=== PATIENT | male | born 1975 ===

== ENCOUNTER 2022-08-02 01:32 | Emergency (ER) | payer BC ==
--- OUTSIDE RECORDS SUMMARY | 2022-08-02 01:35 | XMS REPORT | Continuity of Care Document ---
:1975 Author Organization [facility] t Address [address] [place] [address] Care Team Providers Name Role Phone Lillie Reed Attending Clinician Unavailable Payers Payer Name Policy Type Policy Number Effective Date Expiration Date S [facility] 6 [id number] [facility] Center Problems Condition Condition Condition Status Onset Resolution Last Treating Co mments Source Name Details Category Date Date Treatment Clinician Date [id number] Low Problem Active Common [facility] in male [facility] Essential Benign Problem Active Common hypertensi essential Spi rit on HTN [facility] [id number] Alcoholism Problem Active Comm on [place] [facility] Allergies, Adverse Reactions, Alerts Allergy Allergy Status Severity Reaction(s) Onset Inactive Treating Comm ents Source Name Type Date Date Clinician lisinopr lisinopr Active cough Common il il [facility] Social History Social Habit Start Date Stop Date Quantity Comments Source Sex Assigned At Com mon [facility] History of Tobacco Current Smoker Co mmon [facility] - [facility] Use [facility] Smoking Status Start Date Stop Date Source Current Smoker 2022-01-22 00:00:00 [facility] Medications Ordered Filled Start Stop Current Ordering Indication Dosage Frequency Signature Comments Components Source Medication Medication Date Date Medication? Clinician (SIG) Name Name AndroGel AndroGel No QD AndroGel Pump 20.25 Pump 20.25 2-28 Pump 20.25 MG/ACT MG/ACT 00:00: MG/ACT (1.62%) (1.62%) 00 (1.62%) AndroGel AndroGel 2021-0 No QD AndroGel Pump 20.25 Pump 20.25 2-28 Pump 20.25 MG/ACT MG/ACT 00:00: MG/ACT (1.62%) (1.62%) 00 (1.62%) AndroGel AndroGel 2021-0 No QD AndroGel Pump 20.25 Pump 20.25 2-28 Pump 20.25 MG/ACT MG/ACT 00:00: MG/ACT (1.62%) (1.62%) 00 (1.62%) Valsartan Valsartan No QD Valsartan 80 MG 80 MG 80 MG amLODIPine amLODIPine No QD amLODIPine Besylate 5 Besylate 5 Besylate 5 MG MG MG AndroGel AndroGel No QD AndroGel Pump 20.25 Pump 20.25 Pump 20.25 MG/ACT MG/ACT MG/ACT (1.62%) (1.62%) (1.62%) Valsartan Valsartan No QD Valsartan 80 MG 80 MG 80 MG amLODIPine amLODIPine No QD amLODIPine Besylate 5 Besylate 5 Besylate 5 MG MG MG AndroGel AndroGel No QD AndroGel Pump 20.25 Pump 20.25 Pump 20.25 MG/ACT MG/ACT MG/ACT (1.62%) (1.62%) (1.62%) amLODIPine amLODIPine No 1{table QD amLODIPine Besylate 5 Besylate 5 t} Besylate 5 MG MG MG AndroGel AndroGel No QD AndroGel Pump 20.25 Pump 20.25 Pump 20.25 MG/ACT MG/ACT MG/ACT (1.62%) (1.62%) (1.62%) Valsartan Valsartan No 1{table QD Valsartan 80 MG 80 MG t} 80 MG Valsartan Valsartan No QD Valsartan 160 MG 160 MG 160 MG amLODIPine amLODIPine No BID amLODIPine Besylate 5 Besylate 5 Besylate 5 MG MG MG amLODIPine amLODIPine No 1{table BID amLODIPine Besylate 5 Besylate 5 t} Besylate 5 MG MG MG Valsartan Valsartan No 1{table QD Valsartan 80 MG 80 MG t} 80 MG Valsartan Valsartan No QD Valsartan 320 MG 320 MG 320 MG amLODIPine amLODIPine No 1{table BID amLODIPine Besylate 5 Besylate 5 t} Besylate 5 MG MG MG Valsartan Valsartan No QD Valsartan 320 MG 320 MG 320 MG Valsartan Valsartan No QD Valsartan 160 MG 160 MG 160 MG AndroGel AndroGel No QD AndroGel Pump 20.25 Pump 20.25 Pump 20.25 MG/ACT MG/ACT MG/ACT (1.62%) (1.62%) (1.62%) amLODIPine amLODIPine No 1{table BID amLODIPine Besylate 5 Besylate 5 t} Besylate 5 MG MG MG amLODIPine amLODIPine No BID amLODIPine Besylate 5 Besylate 5 Besylate 5 MG MG MG Valsartan Valsartan No QD Valsartan 320 MG 320 MG 320 MG amLODIPine amLODIPine No 1{table BID amLODIPine Besylate 5 Besylate 5 t} Besylate 5 MG MG MG Vital Signs Vital Name Observation Time Observation Value Comments Source blood pressure 2022-01-22 15:00:00 148 mm[Hg] Common [facility] - systolic [facility] blood pressure 2022-01-22 15:00:00 95 mm[Hg] Common [facility] - diastolic [facility] height 2022-01-22 15:00:00 [facility] weight 2022-01-22 15:00:00 306.8 [lb_av] Common [facility] temperature 2022-01-22 15:00:00 97.8 [degF] [facility] bmi 2022-01-22 15:00:00 45.3 kg/m2 [facility] oximetry 2022-01-22 15:00:00 96 % [facility] respiratory rate 2022-01-22 15:00:00 18 /min Comm on [facility] height 2021-12-24 15:20:00 70 [in_i] Common [facility] weight 2021-12-24 15:20:00 309.6 [lb_av] Common [facility] temperature 2021-12-24 15:20:00 98.0 [degF] Common [facility] bmi 2021-12-24 15:20:00 44.42 kg/m2 Common [facility] oximetry 2021-12-24 15:20:00 96 % Common [facility] respiratory rate 2021-12-24 15:20:00 18 /min Comm on [facility] blood pressure 2021-12-24 15:20:00 140 mm[Hg] Common [facility] - systolic [facility] blood pressure 2021-12-24 15:20:00 98 mm[Hg] Common [facility] - diastolic [facility] height 2021-09-08 15:40:00 70 [in_i] Common [facility] weight 2021-09-08 15:40:00 310 [lb_av] Common [facility] temperature 2021-09-08 15:40:00 98.6 [degF] Common [facility] bmi 2021-09-08 15:40:00 44.48 kg/m2 [facility] oximetry 2021-09-08 15:40:00 98 % Common [facility] respiratory rate 2021-09-08 15:40:00 18 /min Comm on [facility] blood pressure 2021-09-08 15:40:00 138 mm[Hg] [facility] blood pressure 2021-09-08 15:40:00 84 mm[Hg] [facility] height 2021-02-24 14:40:00 70 [in_i] Common [facility] weight 2021-02-24 14:40:00 290 [lb_av] [facility] temperature 2021-02-24 14:40:00 97 [degF] Common [facility] bmi 2021-02-24 14:40:00 41.61 kg/m2 Common [facility] Procedures This patient has no known procedures. Encounters Start End Encounter Admission Attending Care Care Encounter Source Date/Time Date/Time Type Type Clinicians Facility Department ID 2022 Outpatient Derek, STJEFFRYLC STLMLC [id number] Common 11:17:01 Lillie [id number] [facility] 2022-01-21 Outpatient Wasta, STLMLC STLMLC [id number] Common 23:06:01 Lillie [facility] 2021-12-02 Outpatient Wasta, STLMLC STLMLC [id number] Common 15:50:02 Lillie [facility] 2021-08-06 Outpatient Derek, STLMLC STLMLC [id number] Common 13:37:41 Lillie [address] [facility] 2021-08-06 Outpatient Wasta, STLMLC STLMLC [id number] Common 12:22:37 Lillie [address] [facility] 2021-08-06 Outpatient Wasta, STLMLC STLMLC [id number] Common 11:19:55 Lillie [address] [facility] 2022-01-22 2022-01-22 OFFICE STLMLC STLMLC [id number] Co mmon 00:00:00 00:00:00 VISIT EST Spir it PT LEVEL 3 [facility] 2022-01-05 2022-01-05 (WEB) STLMLC STLMLC [id number] Co mmon 00:00:00 00:00:00 [facility] 2021-12-24 2021-12-24 (WELLNESS) STLMLC STLMLC [id number] Common 00:00:00 00:00:00 Wellness Spiri t [facility] 2021-09-08 2021-09-08 OFFICE STLMLC STLMLC [id number] Co mmon 00:00:00 00:00:00 VISIT EST Spir it PT LEVEL 3 [facility] 2021-08-15 2021-08-15 (TEL) STLMLC STLMLC [id number] Co mmon 00:00:00 00:00:00 [facility] 2021-02-24 2021-02-24 (TEL) STLMLC STLMLC [id number] Co mmon 00:00:00 00:00:00 [facility] 2021-02-24 2021-02-24 OL DIG E/M STLMLC STLMLC [id number] Common 00:00:00 00:00:00 C 11-20 Spir it MIN [facility] 2020-12-02 2020-12-02 Outpatient STLMLC STLMLC [id number] Common 00:00:00 00:00:00 [facility] 2020-11-25 2020-11-25 Outpatient STLMLC STLMLC [id number] Common 00:00:00 00:00:00 [facility] 2020-09-02 2020-09-02 Outpatient STLMLC STLMLC [id number] Common 00:00:00 00:00:00 [facility] 2020-08-19 2020-08-19 Outpatient STLMLC STLMLC [id number] Common 00:00:00 00:00:00 [facility] Results This patient has no known results.
[2022-08-02] MEDS ORDERED: HYDROCODONE/APAP 10/325 TAB ONE (02:38)
--- NOTE | 2022-08-02 03:08 | ER ---
Nurse's Notes [facility] Name: Dilip Thibodeaux Jr Age: 47 yrs Sex: Male : 1975 Arrival Date: 08/02/2022 Time: 01:34 Bed 17 Private MD: Diagnosis: Contusion of right foot Presentation: 08/02 01:48 Chief complaint: Patient states: Patient C/O right clavicle pain and right foot pf1 pain,onset 1 hour ago. 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 Coronavirus screen: Vaccine status: Patient reports being unvaccinated. Client denies travel out of the [place] in the last 14 days. At this time, the client does not indicate any symptoms associated with coronavirus-19. Ebola Screen: Patient negative for fever greater than or equal to 101.5 degrees Fahrenheit, and additional compatible Ebola Virus Disease symptoms. Initial Sepsis Screen: Does the patient meet any 2 criteria? No. Patient's initial sepsis screen is negative. Does the patient have a suspected source of infection? No. Patient's initial sepsis screen is negative. Risk Assessment: Do you want to hurt yourself or someone else? Patient reports no desire to harm self or others. Onset of symptoms was August 02, 2022. 01:48 Method Of Arrival: EMS: [facility] pf1 01:48 Acuity: MARY ANN 3 pf1 Triage Assessment: 01:48 General: see nurse assessment. pf1 Historical: - Allergies: 01:53 No Known Allergies; pf1 - Home Meds: 02:44 amlodipine 10 mg tab 1 tab once daily for hypertension [Active]; valsartan 160 mg oral pf1 tab 1 tab once daily for hypertension [Active]; - PMHx: 01:53 Hypertensive disorder; pf1 - PSHx: 02:44 None; pf1 - Immunization history:: Client reports having NOT received the Covid vaccine. Last tetanus immunization: > 10 years ago Flu vaccine is not up to date. It has been more than one year since last vaccine. - Family history:: not pertinent. - Social history:: Smoking status: Patient reports use of chewing tobacco. Patient/guardian denies using street drugs, Patient uses alcohol, on a daily basis. Screenin:50 [facility] ED Fall Risk Assessment (Adult) History of falling in the last 3 months, pf1 including since admission No falls in past 3 months (0 pts) Confusion or Disorientation No (0 pts) Intoxicated or Sedated No (0 pts) Impaired Gait No (0 pts) Mobility Assist Device Used No (0 pt) Altered Elimination No (0 pt) Score/Fall Risk Level 0 - 2 = Low Risk Oriented to surroundings, Maintained a safe environment, Educated pt \T\ family on fall prevention, incl call for assistance when getting out of bed, Assessed \T\ reinforced patient's understanding of fall precautions, Provided non-skid footwear, Hourly rounding (assess needs \T\ fall precautionary measures) done, Used ambulatory aids as needed (educated on \T\ assisted with), Used gait belt as appropriate. 01:50 Abuse screen: Denies threats or abuse. Nutritional screening: No deficits noted. pf1 Tuberculosis screening: No symptoms or risk factors identified. Assessment: 01:50 General: Appears in no apparent distress. uncomfortable, obese, well groomed, well pf1 developed, Behavior is calm, cooperative, appropriate for age. 01:50 Pain: Complains of pain in right foot and right clavicle Pain currently is 3 out of 10 pf1 on a pain scale. Cardiovascular: No deficits noted. Capillary refill < 3 seconds Patient's skin is warm and dry. Respiratory: No deficits noted. Airway is patent Trachea midline Respiratory effort is even, unlabored, Respiratory pattern is regular, symmetrical, Breath sounds are clear bilaterally. 01:50 Neuro: No deficits noted. Level of Consciousness is awake, alert, obeys commands, pf1 Oriented to person, place, time, situation. 01:50 GI: No deficits noted. Abdomen is round non-distended, Bowel sounds present X 4 quads. pf1 Abd is soft and non tender X 4 quads. : No deficits noted. No signs and/or symptoms were reported regarding the genitourinary system. EENT: No deficits noted. No signs and/or symptoms were reported regarding the EENT system. Derm: Wound noted Patient has an abrasion to right clavicle region, no bleeding noted and redness with swelling to dorsum of right foot. Musculoskeletal: Circulation, motion, and sensation intact. Capillary refill < 3 seconds, Range of motion: intact in all extremities, Swelling present in right foot. 02:30 Reassessment: Patient appears in no apparent distress at this time. Patient and/or pf1 family updated on plan of care and expected duration. Pain level reassessed. Patient is alert, oriented x 3, equal unlabored respirations, skin warm/dry/pink. Patient states feeling better. Patient states symptoms have improved. 03:12 Reassessment: Patient denies pain at this time. Patient states feeling better. Patient ke1 states symptoms have improved. Vital Signs: 01:48 BP 183 / 125; Pulse 107; Resp 18; Temp 97.6(O); Pulse Ox 100% on R/A; Weight 138.35 kg; pf1 Height 5 ft. 10 in. (177.80 cm); Pain 3/10; 02:30 BP 161 / 102; Pulse 100; Resp 16; Pulse Ox 96% on R/A; Pain 3/10; pf1 03:12 BP 164 / 97; Pulse 19; Resp 18; Temp 97.8; Pulse Ox 100% ; Pain 0/10; ke1 01:48 Body Mass Index 43.76 (138.35 kg, 177.80 cm) pf1 ED Course: 01:34 Patient arrived in ED. [id number] 01:36 Monty Rivera MD is Attending Physician. rt 01:47 Maria R schneider, IVAN is Primary Nurse. pf1 01:50 Arm band placed on right wrist. pf1 01:50 Placed in gown. Bed in low position. Call light in reach. pf1 01:53 Triage completed. pf1 02:39 Foot Right 3 View XRAY In Process Unspecified. EDMS 03:13 No provider procedures requiring assistance completed. Patient did not have IV access ke1 during this emergency room visit. Administered Medications: 02:35 Drug: [place] (HYDROcodone-acetaminophen) 10 mg-325 mg 1 tabs Route: PO; pf1 03:13 Follow up: Response: No adverse reaction; Marked relief of symptoms; Pain is decreased; pf1 RASS: Alert and Calm (0) Medication: 02:43 VIS not applicable for this client. pf1 Outcome: 03:07 Discharge ordered by . rt 03:13 Discharged to home ambulatory. ke1 03:13 Condition: good 03:13 Discharge instructions given to patient. 03:13 Patient left the ED. ke1 Signatures: Dispatcher [employer] EDMS Stephanie Baltazar [email or web address] Honorio Driscoll RN RN ke1 Monty Rivera MD MD rt Maria R schneider RN RN pf1 Corrections: (The following items were deleted from the chart) 02:48 01:48 Chief complaint: Patient states: Patient C/O right clavicle pain and right foot pf1 pain,onset 1 hour ago. 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 pf1
--- NOTE | 2022-08-02 03:08 | EDPHYS ---
Physician Documentation [facility] Name: Dilip Thibodeaux Jr Age: 47 yrs Sex: Male : 1975 Arrival Date: 08/02/2022 Time: 01:34 Bed 17 Private MD: ED Physician Monty Rivera HPI: 08/02 02:23 This 47 yrs old Male presents to ER via EMS with complaints of Injury. rt 02:23 Presents to the ED with an injury to the right foot. Patient states that a brick fell rt from about head level, scraped his clavicular region on the right side, then landed on his foot. The patient is any other significant pain or trauma. The patient states that the pain is aching nature, nonradiating, mild in severity, no other aggravating alleviating factors.. Historical: - Allergies: 01:53 No Known Allergies; pf1 - Home Meds: 02:44 amlodipine 10 mg tab 1 tab once daily for hypertension [Active]; valsartan 160 mg oral pf1 tab 1 tab once daily for hypertension [Active]; - PMHx: 01:53 Hypertensive disorder; pf1 - PSHx: 02:44 None; pf1 - Immunization history:: Client reports having NOT received the Covid vaccine. Last tetanus immunization: > 10 years ago Flu vaccine is not up to date. It has been more than one year since last vaccine. - Family history:: not pertinent. - Social history:: Smoking status: Patient reports use of chewing tobacco. Patient/guardian denies using street drugs, Patient uses alcohol, on a daily basis. ROS: 02:23 Constitutional: Negative for fever, chills, and weight loss, Cardiovascular: Negative rt for chest pain, palpitations, and edema, Respiratory: Negative for shortness of breath, cough, wheezing, and pleuritic chest pain, Abdomen/GI: Negative for abdominal pain, nausea, vomiting, diarrhea, and constipation, Skin: Negative for injury, rash, and discoloration, Neuro: Negative for headache, weakness, numbness, tingling, and seizure, Psych: Negative for depression, anxiety, suicide ideation, homicidal ideation, and hallucinations. 02:23 MS/extremity: Positive for contusion, pain. Exam: 02:23 Constitutional: This is a well developed, well nourished patient who is awake, alert, rt and in no acute distress. Head/Face: Normocephalic, atraumatic. Neck: Trachea midline, no thyromegaly or masses palpated, and no cervical lymphadenopathy. Supple, full range of motion without nuchal rigidity, or vertebral point tenderness. No Meningismus. Cardiovascular: Regular rate and rhythm with a normal S1 and S2. No gallops, murmurs, or rubs. Normal PMI, no JVD. No pulse deficits. Respiratory: Lungs have equal breath sounds bilaterally, clear to auscultation and percussion. No rales, rhonchi or wheezes noted. No increased work of breathing, no retractions or nasal flaring. Abdomen/GI: Soft, non-tender, with normal bowel sounds. No distension or tympany. No guarding or rebound. No evidence of tenderness throughout. Skin: Warm, dry with normal turgor. Normal color with no rashes, no lesions, and no evidence of cellulitis. Neuro: Awake and alert, GCS 15, oriented to person, place, time, and situation. Cranial nerves II-XII grossly intact. Motor strength 5/5 in all extremities. Sensory grossly intact. Cerebellar exam normal. Normal gait. Psych: Awake, alert, with orientation to person, place and time. Behavior, mood, and affect are within normal limits. 02:23 Chest/axilla: Abrasion over right clavicle, no tenderness to that region, no deformities.. 02:23 Musculoskeletal/extremity: Contusion to the dorsum of the right foot, no deformities noted, pulses, motor, sensation intact. Vital Signs: 01:48 BP 183 / 125; Pulse 107; Resp 18; Temp 97.6(O); Pulse Ox 100% on R/A; Weight 138.35 kg; pf1 Height 5 ft. 10 in. (177.80 cm); Pain 3/10; 02:30 BP 161 / 102; Pulse 100; Resp 16; Pulse Ox 96% on R/A; Pain 3/10; pf1 03:12 BP 164 / 97; Pulse 19; Resp 18; Temp 97.8; Pulse Ox 100% ; Pain 0/10; ke1 01:48 Body Mass Index 43.76 (138.35 kg, 177.80 cm) pf1 MDM: 01:37 Patient medically screened. rt 03:08 Differential diagnosis: Contusion, fracture. Data reviewed: vital signs, radiologic rt studies. Independent interpretation of the following test(s) in the Emergency Department X-Ray: My interpretation is no Fracture identified. Response to treatment: the patient's symptoms have markedly improved after treatment. 08/02 01:41 Order name: Foot Right 3 View XRAY rt 08/02 02:38 Order name: Ice pack; Complete Time: 02:39 pf1 Administered Medications: 02:35 Drug: [place] (HYDROcodone-acetaminophen) 10 mg-325 mg 1 tabs Route: PO; pf1 03:13 Follow up: Response: No adverse reaction; Marked relief of symptoms; Pain is decreased; pf1 RASS: Alert and Calm (0) Disposition Summary: 08/02/22 03:07 Discharge Ordered Location: Home rt Problem: new rt Symptoms: have improved rt Condition: Stable rt Diagnosis - Contusion of right foot rt Followup: rt - With: Private Physician - When: 2 - 3 days - Reason: Discharge Instructions: - Discharge Summary Sheet rt - Contusion, Zavh-gj-Buor rt Forms: - Medication Reconciliation Form rt - Thank You Letter rt - Antibiotic Education rt - Prescription Opioid Use rt Signatures: Dispatcher [employer] EDMonty Vergara MD MD rt Maria R schneider RN RN pf1
[2022-08-02 05:50] VITALS: BP 164/97; TEMP 97.8; O2SAT 100
--- NOTE | 2022-08-03 16:00 | RAD REPORT ---
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 FINDINGS: 3 X-ray views of the right foot (Frontal, lateral and oblique views) were performed. No acute bony injuries were demonstrated. No gross articular abnormality is identified. There are no gross intraosseous lesions. No periosteal reaction were seen. There is minimal soft tissue sw elling within the dorsal of the foot. IMPRESSION: No acute bony injuries were demonstrated. Electronically signed by: Santiago Seth MD 08/02/2022 2:57 AM TRAY SERVICE WORKER Due to temporary technical issues with the PACS/Fluency reporting system, reports are being signed by the in house radiologists without review as a courtesy to insure prompt reporting. The interpreting radiologist is fully responsible for the content of the report
== END 2022-08-02 03:13 | disposition home or self-care (01) ==
LOC: ER 01:32
DX: S90.31XA Contusion of right foot, initial encounter (principal); I10 Essential (primary) hypertension; F17.220 Nicotine dependence, chewing tobacco, uncomplicated
CPT/HCPCS: 99283